=== PATIENT | male | born 1965 | race Asian ===

== ENCOUNTER → 2018-09-22 | Outpatient (CLI) | payer OTHER | LOC: COL.VAS 09:38 | DX: Z53.9 Procedure and treatment not carried out, unspecified reason (principal) ==

== ENCOUNTER → 2018-10-25 | Outpatient (CLI) | payer OTHER | LOC: COL.VAS 09-22 09:00 | DX: R06.02 Shortness of breath (principal) | CPT/HCPCS: J7674 ==